=== PATIENT | male | born 1970 | race Caucasian/White ===

== ENCOUNTER → 2016-12-17 | Outpatient (CLI) | payer OTHER ==
[~2016-12-17] MED LIST: ASPI-110 PO; CYCL5TAB PO; GABA300C5 PO; GLIP5TAB8 PO; HYDR-3366 PO; IBUP200T2 PO; LOSA25TA PO; METF850T PO; NAPR500 PO
--- NOTE | 2016-12-17 13:34 | RADRPT ---
EXAM DATE/TIME: 12/17/2016 13:26 [facility] COMPARISON: CHEST SINGLE AP, July 20, 2014, 15:51. INDICATIONS : Evaluate for penumonia,pneumothorax, or communicable disease. Pre op for cervical spine surgery. MEDICAL HISTORY : Renal calculi. SURGICAL HISTORY : Tonsillectomy. ENCOUNTER: Initial ACUITY: 1 day PAIN SCORE: 0/10 LOCATION: chest FINDINGS: PA and lateral views of the chest demonstrate the lungs to be symmetrically aerated without evidence of mass, infiltrate or effusion. The cardiomediastinal contours are unremarkable. Osseous structure s are intact. CONCLUSION: No acute disease. No significant change has occurred. George Landrum MD on December 17, 2016 at 13:32 Board Certified Radiologist. This report was verified electronically.
[2016-12-17 13:42] LABS: AUTOMATED NEUTROPHIL # 11.6 TH/MM3 (1.8-7.7); BASOPHIL # 0.1 TH/MM3 (0-0.2); BASOPHIL % 0.6 % (0.0-2.0); EOSINOPHIL # 0.6 TH/MM3 (0-0.4); HEMATOCRIT 50.1 % (39.0-51.0); HEMO FLAGS DIFF FINAL; LYMPH % 26.7 % (9.0-44.0); MEAN CELL VOLUME 89.2 FL (80.0-100.0); MEAN CORPUSCULAR HEMOGLOBIN 29.3 PG (27.0-34.0); MEAN CORPUSCULAR HGB CONC 32.8 % (32.0-36.0); MONO % 7.6 % (0.0-8.0); NEUT % 62.1 % (16.0-70.0); PLATELET COUNT 274 TH/MM3 (150-450); RED BLOOD COUNT 5.62 MIL/MM3 (4.50-5.90); RED CELL DISTRIBUTION WIDTH 14.7 % (11.6-17.2); WHITE BLOOD COUNT 18.6 TH/MM3 (4.0-11.0)
[2016-12-17 13:48] LABS: APTT (PATIENT) 26.9 SEC (24.3-30.1); PROTHROMBIN TIME - PATIENT 10.5 SEC (9.8-11.6)
[2016-12-17 13:49] LABS: BLOOD, URINE SMALL (NEG); COMMENT (UR) CULT NOT INDICATED; CULTURE IF INDICATED CULT NOT INDICATED; GLUCOSE,URINE NEG (NEG); KETONE, URINE NEG (NEG); MUCUS URINE FEW /lpf (OCC); NITRITE,URINE NEG (NEG); URINE COLOR YELLOW (YELLW/STRAW)
[2016-12-17 14:05] LABS: ALT (GPT) 27 U/L (12-78); ANION GAP 8 MEQ/L (5-15); AST (GOT) 8 U/L (15-37); BICARBONATE 27.5 MEQ/L (21.0-32.0); BLOOD UREA NITROGEN 28 MG/DL (7-18); CHLORIDE 103 MEQ/L (98-107); GLOMERULAR FILTRATION RATE 80 ML/MIN (>89); GLUCOSE,FASTING 94 MG/DL (74-99); POTASSIUM 4.1 MEQ/L (3.5-5.1); SODIUM (NA) 138 MEQ/L (136-145)
[2016-12-17 14:08] LABS: ALKALINE PHOSPHATASE 44 U/L (45-117); TOTAL BILIRUBIN ADULT 0.2 MG/DL (0.2-1.0)
--- NOTE | 2016-12-18 13:33 | EKG ---
Date Performed: 12/17/2016 Time Performed: 12:39:36 PTAGE: 46 years EKG: Sinus rhythm NONSPECIFIC T-WAVE ABNORMALITY BORDERLINE ECG Compared to prior tracing no significant change PREVIOUS TRACING : 05/24/2008 22.12 DOCTOR: Miguel Perez Interpretating Date/Time 12/18/2016 13:30:44
== END ==
LOC: CPRE 12:20
PROVIDERS: ATTEND Neurological Surgery
DX: Z01.810 Encounter for preprocedural cardiovascular examination (principal); Z01.811 Encounter for preprocedural respiratory examination; Z01.812 Encounter for preprocedural laboratory examination; Z01.818 Encounter for other preprocedural examination; Z79.01 Long term (current) use of anticoagulants; M48.02 Spinal stenosis, cervical region; M50.30 Other cervical disc degeneration, unspecified cervical region; M50.10 Cervical disc disorder with radiculopathy, unspecified cervical region; R94.31 Abnormal electrocardiogram [ECG] [EKG]
CPT/HCPCS: 36415; 71020; 80053; 81001; 85025; 85610; 85730; 93005

== ENCOUNTER 2016-12-22 05:51 | Observation (INO) | payer OTHER ==
[~2016-12-22] VITALS: Ht 167.6 cm; Wt 93.2 kg
[~2016-12-22 05:51] MED LIST changes: -NAPR500 PO
[2016-12-22] MEDS ORDERED: METOPROLOL TARTRATE 25 MG TAB PO PRN (06:15)
[2016-12-22] MEDS ORDERED: VANCOMYCIN HCL 1000 MG ON-CALL/NS 250 ML IV SCH ×2 (06:15)
[2016-12-22] MEDS ORDERED: SODIUM CHLOR 0.9% 1000 ML INJ 1,000 ML IV SCH (06:15)
[2016-12-22] MEDS ORDERED: LACTATED RINGER'S 1000 ML IV PRN (06:15)
[2016-12-22] MEDS ORDERED: SODIUM CHLORID 0.9% 500 ML IV PRN (06:15)
[2016-12-22] MEDS ORDERED: CHLORHEXIDINE GLUCONATE 2 % 1 PACK (2 CLOTHS) TOPICAL PRN (06:15)
[2016-12-22] MEDS ORDERED: INSULIN HUMAN REGULAR 1,000 UNITS/10 ML VIAL SQ PRN (06:15)
[2016-12-22 07:29] VITALS: BP 128/82; PULSE 76; RESP 18; TEMP 98.1; O2SAT 96
[2016-12-22] MEDS ORDERED: BUPIVACAINE/EPINEPHRINE 0.5% 50 ML VIAL ONE (08:05)
[2016-12-22] MEDS ORDERED: THROMBIN (TOPICAL) 5,000 UNIT VIAL ONE (08:08)
[2016-12-22] MEDS ORDERED: VANCOMYCIN HCL 1000 MG VIAL ONE (08:08)
[2016-12-22] MEDS ORDERED: GELFOAM SIZE 100 ONE (08:08)
[2016-12-22] MEDS ORDERED: MIDAZOLAM HCL 5 MG/5 ML VIAL ONE (09:52)
[2016-12-22] MEDS ORDERED: FAMOTIDINE 20 MG/2 ML VIAL ONE (09:52)
[2016-12-22] MEDS ORDERED: ACETAMINOPHEN 1000 MG/100 ML VIAL IV ONE (09:52)
[2016-12-22] MEDS ORDERED: KETAMINE HCL 500 MG/5 ML VIAL ONE (09:52)
[2016-12-22] MEDS ORDERED: fentaNYL CITRATE 250 MCG/5 ML AMP ONE (09:53)
[2016-12-22] MEDS ORDERED: PHENYLEPH/NS 1000 MCG/10 ML SYR IV ONE (12:00)
[2016-12-22] MEDS ORDERED: NEOSTIGMINE 3 MG/3 ML SYR IV ONE (12:00)
[2016-12-22] MEDS ORDERED: NALOXONE HCL 0.4 MG/ML AMP IV ONE (12:00)
[2016-12-22] MEDS ORDERED: LACTATED RINGER'S 1000 ML INJ 1,000 ML IV ONE (12:00)
[2016-12-22] MEDS ORDERED: PROPOFOL 200 MG/20 ML AMP IV ONE (12:00)
[2016-12-22] MEDS ORDERED: ONDANSETRON HCL 4 MG/2 ML VIAL IV PUSH ONE (12:00)
[2016-12-22] MEDS ORDERED: PHENYLEPHRINE HCL 10 MG/ML VIAL IV ONE (12:00)
[2016-12-22] MEDS ORDERED: ePHEDrine/NS 25 MG/5 ML SYR IV ONE (12:00)
[2016-12-22] MEDS ORDERED: NS + KCL 20 MEQ INJ 1,000 ML IV SCH (13:10)
[2016-12-22] MEDS ORDERED: DO NOT ADM ANY ANTICOAGULANT DRUGS PRN (13:11)
[2016-12-22] MEDS ORDERED: ALUMINUM/MAGNESIUM/SIMETH 30 ML CUP PO PRN (13:15)
[2016-12-22] MEDS ORDERED: ZOLPIDEM TARTRATE 5 MG TAB PO PRN (13:15)
[2016-12-22] MEDS ORDERED: MORPHINE SULFATE 8 MG/ML INJ IV PUSH PRN (13:15)
[2016-12-22] MEDS ORDERED: GLUCAGON 1 MG/ML VIAL OTHER PRN (13:15)
[2016-12-22] MEDS ORDERED: ACETAMINOPHEN/HYDROcodone 325 MG/10 MG TAB PO PRN (13:15)
[2016-12-22] MEDS ORDERED: ACETAMINOPHEN 325 MG TAB PO PRN (13:15)
[2016-12-22] MEDS ORDERED: DEXTROSE 50% IN WATER 50 ML VIAL(D50) IV PRN (13:15)
[2016-12-22] MEDS ORDERED: RESP: ALBUTEROL 2.5 MG/3 ML NEB (PRN) NEB (13:15)
[2016-12-22] MEDS ORDERED: MAGNESIUM HYDROXIDE SUSP 30 ML CUP PO PRN (13:15)
[2016-12-22] MEDS ORDERED: cloNIDine HCL 0.1 MG TAB PO PRN (13:15)
[2016-12-22] MEDS ORDERED: SODIUM CHLORIDE 0.9% FLUSH 10 ML FLUSH IV FLUSH PRN (13:15)
[2016-12-22] MEDS ORDERED: *RESP: ALBUTEROL 2.5 MG/3 ML NEB (PRN) PERIprocedural Use ONLY NEB ONE (13:17)
--- NOTE | 2016-12-22 13:19 | PD.OP ---
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 endotracheal by Murphy Velazquez Surgeon: Freddy Barrera M.D. Deputy Insurance Commissioner(s): Emmy Ray Operation and Findings: Following administration of general endotracheal anesthesia, the patient received a gram of vancomycin and Decadron 10 mg intravenously. Sequential compression devices were placed in supine position on a Adonis table and all pressure points adequately padded. The head secured in a donut and anterior cervical region then shaved and prepped with Chloraprep and sterilely draped with Ioban along with the usual sterile draping. A transverse skin incision on the left side of the neck was then made after infiltrating the skin with 0.5% Marcaine with epinephrine solution extending down through the platysma. At the anterior border of the sternocleidomastoid further dissection was undertaken developing a plane between the carotid sheath laterally and the trachea esophagus medially. The prevertebral fascia was exposed and dissected out. The medial attachments of the longus colli muscles were detached and a self- retaining retractor used for exposure. The C6-7 disc space was localized with a marking the disc space and using lateral fluoroscopy. Harriet distraction screws 14 mm length were placed one in the C6 and one in the C7 body interbody distraction and exposure. There was some disc degeneration and anterior osteophytes noted at the C6-7 level and the osteophytes were resected with a Leksell and annulus incised with a 15 blade and further dissection undertaken using microtechnique with microscope magnification. Diskectomy was undertaken with pituitaries and the endplates were also decorticated with curettes and drill bit. And more posteriorly there was disk osteophyte complex compressing the thecal sac along with a significant uncovertebral joint hypertrophy with foraminal stenosis and a herniated disc fragment in the right foramen which was removed and the foramen decompressed along with removal of the posterior longitudinal ligament. The foramen was decompressed bilaterally using a Kerrison 's and palpation with a nerve hook, the exiting nerve roots were felt to be free. The area was then copiously irrigated. I then placed a Peek cage packed with local autograft bone at the C6-7 interspace under fluoroscopy guidance. Harriet distraction pins were removed and the holes plugged with Gelfoam for hemostasis. In order to facilitate the fusion and provide stabilization, a Precision spine cervical plate was then placed with two 14 mm variable angle screws in the C6 body and two 14 mm fixed angle screws in the C7 body. The plate screw locking mechanism was then engaged. AP and lateral fluoroscopy confirmed good placement of the construct and the retractor was then removed. Muscular bleeding points were cauterized with bipolar cautery and Gelfoam was then also used for hemostasis which was removed. The platysma was then approximated using 3-0 Vicryl interrupted stitches and 3-0 Vicryl subcuticular stitch also placed in an interrupted fashion, and final skin closure was with Mastisol and Steri-Strips. Sterile dressing was then applied. The patient was then extubated and taken to the recovery room. There are no intraoperative complications and all sponge and needle counts were correct at the end of procedure. Estimated blood loss was about 50 cc. The patient did undergo intraoperative neurologic monitoring which remained stable throughout the surgery. Freddy Barrera MD Dec 22, 2016 13:19
--- NOTE | 2016-12-22 13:41 | RADRPT ---
EXAM DATE/TIME: 12/22/2016 10:24 [facility] COMPARISON: No previous studies available for comparison. INDICATIONS : Cervical spine fusion level 6-7 MEDICAL HISTORY : None. SURGICAL HISTORY : None. ENCOUNTER: Initial ACUITY: 1 day PAIN SCORE: Non-responsive. LOCATION: Bilateral C-spine. FINDINGS: There is evidence for anterior fusion lower cervical spine at the level of C6-7. CONCLUSION: Intraoperative examination. Breanna Madison MD on December 22, 2016 at 13:39 Board Certified Radiologist. This report was verified electronically.
[2016-12-22] MEDS ORDERED: PILL SPLITTER OTHER PRN (13:45)
[2016-12-22] MEDS ORDERED: *morphine SULFATE 8 MG/ML PERIprocedure ONLY ONE ×2 (13:54→15:39)
[2016-12-22] MEDS: INSULIN NovoLIN REGULAR SUPPLEMENTAL SCALE SQ SCH ×2 (16:00→21:43)
[2016-12-22 16:20] VITALS: BP 146/89; PULSE 103; RESP 18; TEMP 97.4; O2SAT 92
[2016-12-22] MEDS: ACETAMINOPHEN/HYDROcodone 325 MG/10 MG TAB PO PRN (18:04)
[2016-12-22] MEDS: MENTHOL LOZENGE BUCCAL PRN (18:04)
[2016-12-22] MEDS: CYCLOBENZAPRINE HCL 10 MG TAB PO SCH (18:04)
[2016-12-22 19:42] VITALS: BP 134/77; PULSE 105; RESP 18; TEMP 97.7; O2SAT 92
[2016-12-22] MEDS ORDERED: GABAPENTIN 300 MG CAP PO SCH (21:00)
[2016-12-22] MEDS: SODIUM CHLORIDE 0.9% FLUSH 10 ML FLUSH IV FLUSH SCH (21:38)
[2016-12-22] MEDS: DOCUSATE SODIUM 100 MG CAP PO SCH (21:38)
[2016-12-23] MEDS: ACETAMINOPHEN/HYDROcodone 325 MG/10 MG TAB PO PRN ×3 (00:19→09:03)
[2016-12-23 00:23] VITALS: BP 127/77; PULSE 90; RESP 18; TEMP 97.4; O2SAT 92
[2016-12-23 03:23] VITALS: BP 126/77; PULSE 95; RESP 18; TEMP 97.6; O2SAT 93
[2016-12-23] MEDS: MENTHOL LOZENGE BUCCAL PRN (05:25)
[2016-12-23] MEDS: INSULIN NovoLIN REGULAR SUPPLEMENTAL SCALE SQ SCH (06:10)
[2016-12-23 08:00] VITALS: BP 126/63; PULSE 92; RESP 18; TEMP 97.6; O2SAT 94
[2016-12-23] MEDS ORDERED: ASPIRIN EC 81 MG TABEC PO SCH (09:00)
[2016-12-23] MEDS ORDERED: LOSARTAN 25 MG TAB PO SCH (09:00)
[2016-12-23] MEDS ORDERED: PANTOPRAZOLE SOD 40 MG DELAYED RELEASE TAB PO SCH (09:00)
[2016-12-23] MEDS: DOCUSATE SODIUM 100 MG CAP PO SCH (09:01)
[2016-12-23] MEDS: CYCLOBENZAPRINE HCL 10 MG TAB PO SCH (09:02)
[2016-12-23] MEDS: SODIUM CHLORIDE 0.9% FLUSH 10 ML FLUSH IV FLUSH SCH (09:05)
--- NOTE | 2016-12-23 09:07 | HHI.NSPN ---
History Chief Complaint: Mild incisional pain. Interval History Pt awake and alert. He is s/p C6/C7 anterior cervical fusion with plate placement on 12/22/16. Mild incisional discomfort. Radicular pain has resolved and he is very pleased with this. Very mild paresthesias in the right 1-3rd finger tips. Good strength. He is ambulating and voiding well. Review of Systems General: Negative for: fever, chills, insomnia Respiratory: Negative for: shortness of breath, cough, sputum Cardiovascular: Negative for: chest pain Gastrointestinal: Negative for: nausea, vomitting, diarrhea, constipation Exam Results Vital Signs Date Time Temp Pulse Resp B/P Pulse Ox O2 Delivery O2 Flow Rate FiO2 12/23/16 03:23 97.6 95 18 126/77 93 12/22/16 16:15 Nasal Cannula 3 Intake and Output 12/22/16 12/22/16 12/23/16 08:00 16:00 00:00 Intake Total 1600 ml 1210 ml Output Total 50 ml 1575 ml Balance 1550 ml -365 ml Physical Examination Resp: CTA bilaterally Heart: NSR no murmurs Abd: Soft positive bs Skin: Incision clean and dry. New bandage placed by RN. Muscle: Moves all 4 extremities well. Neuro: Pt awake and alert. Follows commands well. Speech clear and appropriate. Sensation in extremities intact. Lab, Micro, Other Results Last Impressions Cervical Spine X-Ray 12/22/16 0000 Signed Impressions: Service Date/Time: Thursday, December 22, 2016 10:24 - CONCLUSION: Intraoperative examination. Breanna Madison MD 12/22/16 12/22/16 12/23/16 15:00 23:00 07:00 Intake Total 1600 ml 1210 ml 720 ml Output Total 50 ml 1575 ml 550 ml Balance 1550 ml -365 ml 170 ml Intake Oral 960 ml 720 ml IV Total 250 ml Other 1600 ml Output Urine Total 0 ml 1575 ml 550 ml Estimated Blood Loss 50 ml # Voids 2 # Bowel Movements 0 0 Medical Decision Making Impression and Plan A: 46 y/o M s/p C6/C7 ACF. Doing very well with resolution of his symptoms and requesting discharge home. P: Discharge home. Discussed restrictions with pt. José Manuel Rodriguez Dec 23, 2016 09:07
== END 2016-12-23 11:02 | disposition home or self-care (01) ==
LOC: HSDC 05:51 → HSDI 13:14 → N06B 16:38
PROVIDERS: ADMIT Neurological Surgery; ATTEND Neurological Surgery
PROC: 0RG00A0 Fusion of Occipital-cervical Joint with Interbody Fusion Device, Anterior Approach, Anterior Column, Open Approach (ICD-10-PCS; principal; 2016-12-22 10:17)
DX: M50.123 Cervical disc disorder at C6-C7 level with radiculopathy (principal); M25.78 Osteophyte, vertebrae; I10 Essential (primary) hypertension; E11.9 Type 2 diabetes mellitus without complications; F32.9 Major depressive disorder, single episode, unspecified; F17.200 Nicotine dependence, unspecified, uncomplicated; G47.30 Sleep apnea, unspecified; E66.9 Obesity, unspecified; M06.9 Rheumatoid arthritis, unspecified; Z79.899 Other long term (current) drug therapy; Z79.84 Long term (current) use of oral hypoglycemic drugs; Z68.33 Body mass index [BMI] 33.0-33.9, adult; Z79.82 Long term (current) use of aspirin
CPT/HCPCS: 00600; 20936; 22551; 22845; 22854; 72040; 76000; 82948; 94150; 94664; C1713; G0378; J0131; J2250; J2270; J2310; J2370; J2405; J2710; J3010; J3370; J3480; J7050; J7120; J7613